=== PATIENT | female | born 1940 | race Caucasian/White ===

== ENCOUNTER 2019-10-12 12:24 | Inpatient (IN) | payer MEDICARE, OTHER ==
[2019-10-12] MEDS ORDERED: Iopamidol-370 76% 500 ML 1 ML ONE (12:31)
[2019-10-12 12:44] LABS: #Basophils 0.1 thou/uL (0.0-0.2); #Eosinphils 0.1 thou/uL (0.0-0.7); #Lymphocytes 3.1 thou/uL (1.20-3.40); #Neutrophils 9.4 thou/uL (1.40-6.50); %Basophils 0.9 % (0.0-1.0); %Eosinophils 0.7 % (0.0-10.0); %Lymphocytes 22.7 % (21.0-51.0); %Neutrophils 68.7 % (42.0-75.0); Mean Corpuscular HGB CONC 32.9 g/dL (32.0-36.0); Mean Corpuscular Hemoglobin 26.9 pg (27.0-31.0); Mean Corpuscular Volume 81.8 fL (78.0-98.0); Mean Platelet Volume 7.3 fL (7.4-10.4); Platelet Count 367 thou/uL (130-400); RBC Distribution Width 13.3 % (11.5-14.5); White Blood Cell (WBC) Count 13.7 thou/uL (4.8-10.8)
--- NOTE | 2019-10-12 12:50 | CT ---
CT BRAIN NONCONTRAST: DATE: 10/12/2019 HISTORY: 79-year-old female status post acute head trauma from fall. Dr. Bailey verbally gave this trauma report by telephone to Dr. Renae of the ER at 12:47 PM 10/12/2019 FINDINGS: There is no evidence of acute intra-axial or extra-axial hemorrhage. There is no midline shift or any other mass effect. There is no extra-axial fluid collection. There is no evidence of obstructive hydrocephalus. Calvarium is intact. There is diffuse brain parenchymal volume loss. There are low att enuation areas in the white matter. These are nonspecific, but in a patient of this age, they are probably chronic ischemic white matter changes due to microvascular atherosclerosis. There is a super ficial soft tissue hematoma in the right parietal scalp. IMPRESSION: 1) No acute intracranial findings. 2) involutional changes and severe chronic ischemic white matter changes. 3) acute, traumatic right parietal scalp hematoma.
[2019-10-12] MEDS ORDERED: Fentanyl 100 MCG/2 ML VIAL ONE (12:58)
[2019-10-12] MEDS ORDERED: Lidocaine 1% w/Epinephrine 1:100K 20 ML VIAL ONE (12:59)
[2019-10-12] MEDS ORDERED: Ondansetron PF 4 MG/2 ML Vial ONE (12:59)
[2019-10-12] MEDS ORDERED: Adacel (T-DAP) 0.5 ML SYRINGE ONE (13:04)
[2019-10-12 13:07] LABS: ALT (SGPT) 9 U/L (8-55); AST (SGOT) 15 U/L (5-34); Albumin 3.9 g/dL (3.4-4.8); Alkaline Phosphatase 129 U/L (40-110); Anion Gap 16 mmol/L (10-20); BUN (Urea Nitrogen) 7 mg/dL (9.8-20.1); Bilirubin, Total 0.5 mg/dL (0.2-1.2); CK (CPK) 55 U/L (29-168); Calc. Creatinine Clearance 0 mL/min (70-130); Calcium 9.5 mg/dL (7.8-10.44); Carbon Dioxide 21 mmol/L (23-31); Chloride 101 mmol/L (98-107); Estimated GFR-MDRD 73; Glucose 118 mg/dL (83-110); Lipase 6 U/L (8-78); Protein, Total 6.9 g/dL (6.0-8.3); Sodium 134 mmol/L (136-145)
--- NOTE | 2019-10-12 13:14 | CT ---
CT THORAX WITH CONTRAST CT ABDOMEN WITH CONTRAST CT PELVIS WITH CONTRAST CT THORACIC SPINE WITH CONTRAST CT LUMBAR SPINE WITH CONTRAST: (Trauma protocol) DATE: 10/12/2019 HISTORY: Trauma to the chest, abdomen, and pelvis 79-year-old female status post fall. Dr. Bailey discussed the findings and recommendations by telephone with Dr. Renae at 1:11 PM 10/12/2019 TECHNIQUE: IV administration of iodinated contrast media. No oral contrast media. Single phase scans of thorax, abdomen, and pelvis. Sagittal reconstructions of thoracic and lumbar spine. FINDINGS: Lungs: No contusion. 7 mm groundglass nodule left lower lobe. 5 mm noncalcified nodule anterior segment right upper lobe. Pleura: No pneumothorax or hemothorax. Thoracic aorta: No dissection or rupture. Mediastinum: No hematoma. Hilum: 2.5 x 1 cm soft tissue density mass at left hilum Abdomen and pelvis: Liver: No laceration Spleen: No laceration Pancreas: No surrounding fluid or fat stranding. Kidneys: No hydronephrosis or laceration. 2.7 x 2.1 x 3.3 cm right adrenal nodule. Bladder: No gross evidence of rupture. Abdominal aorta: 3.3 cm fusiform infrarenal abdominal aortic aneurysm. No dissection or rupture. Small bowel: No dilation. Colon: No adjacent fat stranding. Free air: None. Free fluid: None. Skeleton: Ribs: No grossly displaced acute fracture. Sternum: No grossly displaced acute fracture. Thoracic spine: No acute compression fracture. Lumbar spine: No acute compression fracture. High-grade degenerative disc disease at 2 levels. Pelvis: No grossly displaced acute fracture. No dislocation. IMPRESSION: 1.) No evidence of acute traumatic injury within the thorax, abdomen, or pelvis. 2.) 3.3 cm fusiform infrarenal abdominal aortic aneurysm. 3.) Retroperitoneal para-aortic abnormally enlarged 4) lumbar spondylosis. 5) 2.7 cm right adrenal nodule. Recommend dedicated CT of abdomen with and without contrast, adrenal protocol. 6) left hilar mass or lymphadenopathy. Recommend PET scan. 7) bilateral pulmonary nodules, one on each side. Recommend six-month follow-up chest CT.
[2019-10-12 13:26] LABS: CKMB 3.4 ng/mL (0-6.6)
--- NOTE | 2019-10-12 13:50 | CT ---
CT CERVICAL SPINE WITH CORONAL AND SAGITTAL REFORMATIONS AND NO IV CONTRAST: 10/12/19 HISTORY: Level II trauma. Fall, neck pain. FINDINGS: Multilevel degenerative changes are seen. No fracture, subluxation or facet malalignment is identifie d. Discussed over the telephone with ER physician, Dr. Rob Renae at 12:58 p.m. POS: SAMUEL
[2019-10-12] MEDS ORDERED: Bisacodyl 5 MG TAB PO PRN (17:32)
[2019-10-12] MEDS ORDERED: Acetaminophen 650 MG Suppository PR PRN (17:32)
--- NOTE | 2019-10-12 19:07 | HP ---
PRIMARY CARE PROVIDER: Unknown. CHIEF COMPLAINT: Unwitnessed fall. HISTORY OF PRESENT ILLNESS: Ms. Zabala is a pleasant 79-year-old lady, who was seen at [facility] on October 12, 2019. Patient is unable to provide any significant history. Collateral history was obtained from the patient's daughter by the bedside. Patient lives at home and has a caregiver, who comes for a few hours. She was last seen to be fine around 7 p.m. yesterday. Today when the caregiver came to her house, she was found on the floor, covered in blood. She also had reported urinated on herself. She was transferred to this hospital as a trauma alert. She had workup done for trauma. She was subsequently referred to hospitalist service for syncope workup. REVIEW OF SYSTEMS: Could not be completed secondary to patient's nonverbal status. PAST MEDICAL HISTORY: Hypertension and coronary artery disease. PAST SURGICAL HISTORY: Coronary artery bypass graft twice, hysterectomy, and lumbar spine surgery. SOCIAL HISTORY: Patient smokes one pack of cigarettes a day. There is no history of alcohol use or recreational drug use. FAMILY HISTORY: Significant for coronary artery disease. CODE STATUS: I discussed her code status with her daughter. Patient is DNAR. ALLERGIES: PENICILLIN. CURRENT MEDICATIONS: Need to be clarified. PHYSICAL EXAMINATION: GENERAL: On examination, Ms. Zabala is sleepy, but arousable, not in acute distress. VITAL SIGNS: Blood pressure is 150/94, pulse 113, respiratory rate 16, and oxygen saturation 93% on room air. She is afebrile. EYES: No scleral icterus, no conjunctival pallor. ENT: Moist mucosal membranes. No oropharyngeal erythema or exudates. NECK: Supple, nontender, trachea is midline. RESPIRATORY: Accessory muscles of breathing are not active. Chest wall movements are symmetric bilaterally. Lungs are clear to auscultation, without wheeze, rhonchi, or crepitations. CARDIOVASCULAR: S1 and S2 are heard, tachycardic and regular. Peripheral pulses palpable. ABDOMEN: Soft, nontender, bowel sounds are heard. NEUROLOGIC: Full neurologic examination was not possible secondary to patient's noncooperation. No facial droop. Deep tendon reflexes 2+, plantars downgoing bilaterally. MUSCULOSKELETAL: Could not assess power. SKIN: Patient has a scalp laceration. She also had blood covering her skin in other parts of her body. LYMPHATIC: No cervical lymphadenopathy. PSYCHIATRIC: Could not assess mood, affect, or orientation to person, place, or time. LABORATORY DATA: Ms. Zabala's labs and investigations were reviewed. I reviewed her electrocardiogram, which shows normal sinus rhythm, no ST changes to suggest an acute coronary syndrome. I also reviewed her noncontrast CT scan of the brain, which does not show any acute intracranial findings. She has a right parietal scalp hematoma. CT scan of the cervical spine showed multilevel degenerative changes but no fracture, subluxation, or facet malalignment. CT scan of the chest, abdomen, pelvis, and CT did not show any evidence of acute traumatic injury within the thorax, abdomen, or pelvis. She has a 3.3 cm fusiform infrarenal abdominal aortic aneurysm, abnormally enlarged retroperitoneal para-aortic lymph nodes, lumbar spondylosis, 2.7 right adrenal nodule, and left hilar mass or lymphadenopathy. She also had bilateral pulmonary nodules. She has decreased sodium of 134, normal potassium, normal creatinine, indeterminate troponin-I of 0.050, elevated alkaline phosphatase of 129, otherwise unremarkable LFTs, leukocytosis with 13,700 white cells, of which 9400 are neutrophils, normal hemoglobin and normal platelet count. Urine studies are pending. ASSESSMENT AND PLAN: Ms. Zabala is a pleasant 79-year-old lady, who was seen at [facility] on October 12, 2019. Her problem list includes: 1. Acute metabolic encephalopathy: Ms. Campos is presenting with acute metabolic encephalopathy, etiology unclear. She will be admitted to the hospital for further management. We will provide gentle hydration. We will await urine studies to evaluate for infection. 2. Fall: Patient had an unwitnessed fall. She reportedly also urinated on herself. We will check EEG to rule out seizure. We will get PT consult. 3. Coronary artery disease: Patient has an indeterminate troponin. We will monitor on telemetry and recheck her troponin. We will also check 2D echocardiogram to look for regional wall motion abnormalities. 4. Hyponatremia: Mild, likely asymptomatic. 5. Adrenal nodule: Further workup as outpatient. 6. Left hilar mass: We will initiate workup once the goals of care are clear. 7. Level of risk: High. 8. Level of complexity: High. Job ID: [id number]
[2019-10-12 20:37] LABS: Troponin I 0.029 ng/mL (< 0.028)
[2019-10-12] MEDS: Nicotine 21 MG PATCH TD SCH (22:12)
[2019-10-12] MEDS: Sodium Chloride 0.9% 1,000 ML IV SCH (22:12)
[2019-10-12 22:31] VITALS: BMI 25.1
[2019-10-12 23:44] LABS: Troponin I 0.018 ng/mL (< 0.028)
[2019-10-13 08:06] LABS: #Basophils 0.1 thou/uL (0.0-0.2); #Eosinphils 0.2 thou/uL (0.0-0.7); #Lymphocytes 3.1 thou/uL (1.20-3.40); #Monocytes 0.8 thou/uL (0.11-0.59); #Neutrophils 5.8 thou/uL (1.40-6.50); %Basophils 0.9 % (0.0-1.0); %Eosinophils 1.7 % (0.0-10.0); %Lymphocytes 31.2 % (21.0-51.0); %Monocytes 8.1 % (0.0-10.0); %Neutrophils 58.2 % (42.0-75.0); Hemoglobin 11.4 g/dL (12.0-16.0); Mean Corpuscular HGB CONC 32.2 g/dL (32.0-36.0); Mean Corpuscular Volume 83.9 fL (78.0-98.0); Mean Platelet Volume 7.6 fL (7.4-10.4); Platelet Count 323 thou/uL (130-400); RBC Distribution Width 13.4 % (11.5-14.5); Red Blood Cell (RBC) Count 4.22 mill/uL (4.20-5.40)
[2019-10-13 08:27] LABS: Anion Gap 13 mmol/L (10-20); BUN (Urea Nitrogen) 9 mg/dL (9.8-20.1); Calc. Creatinine Clearance 73 mL/min (70-130); Calcium 8.7 mg/dL (7.8-10.44); Carbon Dioxide 20 mmol/L (23-31); Chloride 106 mmol/L (98-107); Estimated GFR-MDRD 84; Glucose 86 mg/dL (83-110); Sodium 135 mmol/L (136-145)
[2019-10-13] MEDS ORDERED: Prevnar 13-Val Conj/PF 0.5 ML SYRINGE IM ONE (09:00)
[2019-10-13 11:59] LABS: Bacteria/HPF None Seen HPF (None Seen); Bilirubin Negative (Negative); Blood, Urine Negative (Negative); Clarity Clear (Clear); Glucose, Urine (Dipstick) Normal (Negative); Ketone, Urine Negative (Negative); Leukocyte Negative Leu/uL (Negative); Nitrite Negative (Negative); Protein, Urine (Dipstick) Negative (Neg-Trace); RBC/HPF 0-3 HPF (0-3); Specific Gravity, Urine 1.042 (1.002-1.036); Squamous Epithelial 0-3 HPF (0-3); Urobilinogen Normal mg/dL (Less than 2); WBC/HPF 0-3 HPF (0-3)
[2019-10-13 12:00] LABS: Urine Culture Reflex No No
[2019-10-13] MEDS ORDERED: Iopamidol-370 76% 500 ML 1 ML ONE (13:23)
[2019-10-13] MEDS: Sodium Chloride 0.9% 1,000 ML IV SCH (15:22)
--- NOTE | 2019-10-13 16:27 | PDOC.HOSPP ---
- Subjective Encounter Date: 10/13/19 Encounter Time: 08:00 Subjective: no overnight events. this morning, feeling well and has no complaints. - Objective Vital Signs & Weight: Vital Signs (12 hours) Temp Pulse Resp BP BP Pulse Ox 10/13/19 15:25 98.5 F 96 14 178/75 H 94 L 10/13/19 11:12 98.5 F 73 14 115/55 L 96 10/13/19 07:52 98.6 F 81 14 136/63 94 L Weight Weight 146 lb 8 oz I&O: 10/12/19 10/13/19 10/14/19 06:59 06:59 06:59 Intake Total 580 Balance 580 Result Diagrams: 10/13/19 07:46 10/13/19 07:46 Hospitalist ROS - Review of Systems Constitutional: denies: fever, chills, sweats Respiratory: denies: cough, dry, shortness of breath Cardiovascular: denies: chest pain, palpitations, orthopnea Gastrointestinal: denies: nausea, vomiting, abdominal pain, diarrhea Genitourinary: denies: hematuria - Medication Medications: Active Medications Generic Name Dose Route Start Last Admin Trade Name Freq PRN Reason Stop Dose Admin Sodium Chloride 1,000 mls @ 50 mls/hr 10/12/19 18:30 10/13/19 15:22 Normal Saline 0.9% IV 1,000 mls .Q20H ISSAC Administration Nicotine 21 mg 10/12/19 21:00 10/12/19 22:12 Nicoderm Patch TD Not Given Q24HR ISSAC - Exam General Appearance: NAD, awake alert ENT - other findings: small 1-2cm diameter posterior scalp hematoma, stapled laceration Neck: no JVD Heart: RRR, no murmur, no gallops, no rubs Respiratory: CTAB, no wheezes, no rales, no ronchi Gastrointestinal: soft, non-tender, non-distended, normal bowel sounds Extremities: no edema Psychiatric: oriented to person, oriented to place. negative: oriented to time Hosp A/P - Plan #syncope/presyncope -infectious and cardiac workup negative so far (telemetry showing occasional PVCs) -orthostats -continue IVF #adrenal incidentaloma -CT abd w/ w/o contrast, adrental protocol -metanephrine, subclinical kyler, hyperaldosteronism workup #lung incidentaloma -2 subcentimeter pulmonary nodules; considering not single less likely malignant etiology -history of tobacco abuse -follow up imaging as outpatient in 3-6 months #HTN
[2019-10-13] MEDS ORDERED: hydrALAZINE 20 MG/ML VIAL SLOW IVP PRN (16:50)
[2019-10-13] MEDS ORDERED: Labetalol HCl 100 MG/20 ML VIAL SLOW IVP PRN (16:50)
--- NOTE | 2019-10-13 19:08 | CT ---
CT ABDOMEN AND PELVIS WITH AND WITHOUT CONTRAST: 10/13/19 Postcontrast images were obtained in a portal venous phase and delayed venous phase following an adre nal protocol. INDICATIONS: Follow-up CT scan from 10/12/19 which described a right adrenal mass. FINDINGS: The right adrenal mass is again noted. This right adrenal mass measures approximately 3 cm AP dimensi on in axial plane. Review of these densities indicate a benign adenoma. The precontrast images recorded at approximately 1.0 Hounsfield units. The postcontrast images show washout that would indicate a benign lesion with portal venous density recorded at 46 Hounsfield units and delayed density recorded at 15 Hounsfield u nits. The liver, spleen, pancreas and kidneys unremarkable. There is an abdominal aortic aneurysm which was described on yesterday's CT. No other interval change noted. IMPRESSION: 1. Adrenal mass protocol again demonstrates a right adrenal mass. The adrenal protocol shows den sities consistent with a benign adenoma. 2. Abdominal aortic aneurysm again noted. No significant change from yesterday's CT. POS: MARIE
[2019-10-13] MEDS: Nicotine 21 MG PATCH TD SCH (21:32)
[2019-10-13] MEDS ORDERED: Dexamethasone 1 MG TAB PO SCH (23:00)
[2019-10-14] MEDS: Acetaminophen 325 MG TAB PO PRN ×2 (05:00→23:23)
[2019-10-14] MEDS: Sodium Chloride 0.9% 1,000 ML IV SCH (11:41)
--- NOTE | 2019-10-14 16:10 | PDOC.HOSPP ---
- Subjective Encounter Date: 10/14/19 Encounter Time: 09:00 Subjective: no overnigh events. this morning more alert and oriented x 3. feels well and has no complaints. - Objective Vital Signs & Weight: Vital Signs (12 hours) Temp Pulse Resp BP BP Pulse Ox 10/14/19 14:58 97.3 F L 78 16 158/71 H 96 10/14/19 11:52 96.9 F L 66 14 142/64 H 95 10/14/19 07:17 97.3 F L 71 12 154/76 H 97 Weight Weight 146 lb 8 oz I&O: 10/13/19 10/14/19 10/15/19 06:59 06:59 06:59 Intake Total 580 840 Output Total 200 Balance 580 640 Result Diagrams: 10/13/19 07:46 10/13/19 07:46 Hospitalist ROS - Review of Systems Constitutional: denies: fever, chills, sweats, weakness, malaise, other Respiratory: denies: cough, dry, shortness of breath, hemoptysis, SOB with excertion, pleuritic pain, sputum, wheezing, other Cardiovascular: denies: chest pain, palpitations, orthopnea, paroxysmal noc. dyspnea, edema, light headedness, other Gastrointestinal: denies: nausea, vomiting, abdominal pain, diarrhea, constipation, melena, hematochezia, other - Medication Medications: Active Medications Generic Name Dose Route Start Last Admin Trade Name Freq PRN Reason Stop Dose Admin Acetaminophen 650 mg 10/12/19 17:32 10/14/19 05:00 Tylenol PO 650 mg Q4H PRN Administration Headache/Fever/Mild Pain (1-3) Sodium Chloride 1,000 mls @ 50 mls/hr 10/12/19 18:30 10/14/19 11:41 Normal Saline 0.9% IV 1,000 mls .Q20H ISSAC Administration Nicotine 21 mg 10/12/19 21:00 10/13/19 21:32 Nicoderm Patch TD Not Given Q24HR ISSAC - Exam General Appearance: NAD, awake alert Neck: no JVD Heart: RRR, no murmur, no gallops, no rubs Respiratory: CTAB, no wheezes, no rales, no ronchi Gastrointestinal: soft, non-tender, non-distended, normal bowel sounds Extremities: no edema Psychiatric: normal affect, normal behavior, A&O x 3 Hosp A/P - Plan #syncope/presyncope -infectious and cardiac workup negative so far (telemetry showing occasional PVCs) -orthostats negative -likely a result of mechanical fall due to deconditioning -pending placement #adrenal incidentaloma -CT c/w benign adenoma; subclnical kyler and DHEAS negative; pending metanephrine #lung incidentaloma -2 subcentimeter pulmonary nodules; considering not single less likely malignant etiology -history of tobacco abuse -follow up imaging as outpatient in 3-6 months #HTN better controlled; continue current regimen Dispo: attempted to call daughter Mirtha; left voice message Pending placement; CM consulted; intermediate project manager care preferable since not certain patient will be able to care for self
[2019-10-14] MEDS: Nicotine 21 MG PATCH TD SCH (22:07)
[2019-10-15] MEDS: Sodium Chloride 0.9% 1,000 ML IV SCH (11:08)
[2019-10-16] MEDS: Nicotine 21 MG PATCH TD SCH ×2 (01:17→20:56)
[2019-10-16] MEDS: Sodium Chloride 0.9% 1,000 ML IV SCH (08:40)
[2019-10-16] MEDS: Acetaminophen 325 MG TAB PO PRN (08:40)
--- NOTE | 2019-10-16 17:04 | EEG ---
DATE OF SERVICE: 10/15/2019 ATTENDING PHYSICIAN: Corinne Roberts MD. This EEG was performed using 24-channel [employer] video digital EEG machine with 24-disk electrodes. This was an extended 2-hour 5-minute of inpatient video EEG recording. Digital analysis of the EEG was done for spike and seizure detection, which revealed no abnormalities. BACKGROUND: The posterior background rhythm was not observed. HYPERVENTILATION: Not performed. PHOTIC STIMULATION: No significant response seen with photic stimulation. SLEEP: No stage change was observed. EEG DIAGNOSES: 1. Intermittent irregular theta activity, at times sharply contoured, seen throughout the recording. 2. Absence of posterior background rhythm. CLINICAL INTERPRETATION: This EEG is consistent with moderate generalized nonspecific cerebral dysfunction. Job ID: [id number]
--- NOTE | 2019-10-16 17:34 | PDOC.HOSPP ---
- Subjective Encounter Date: 10/15/19 Encounter Time: 09:00 Subjective: no overnight evnets. this morning feeling better overall and has no complaints. Pending placement - Objective Vital Signs & Weight: Vital Signs (12 hours) Temp Pulse Pulse Pulse Resp BP BP 10/16/19 15:04 96.3 F L 71 18 10/16/19 11:07 97.8 F 77 18 10/16/19 09:00 73 71 143/60 H 141/63 H 10/16/19 06:52 98.2 F 77 18 BP BP Pulse Ox Pulse Ox Pulse Ox 10/16/19 15:04 158/72 H 96 10/16/19 11:07 150/65 H 98 10/16/19 09:00 97 97 10/16/19 06:52 143/94 H 97 Weight Weight 146 lb 8 oz I&O: 10/15/19 10/16/19 10/17/19 06:59 06:59 06:59 Intake Total 1920 Output Total 250 Balance 1670 Result Diagrams: 10/13/19 07:46 10/13/19 07:46 Hospitalist ROS - Review of Systems Constitutional: denies: fever, chills, sweats Respiratory: denies: cough, dry, shortness of breath Cardiovascular: denies: chest pain, palpitations Gastrointestinal: denies: nausea, vomiting, abdominal pain Genitourinary: denies: dysuria, frequency, hematuria - Medication Medications: Active Medications Generic Name Dose Route Start Last Admin Trade Name Freq PRN Reason Stop Dose Admin Acetaminophen 650 mg 10/12/19 17:32 10/16/19 08:40 Tylenol PO 650 mg Q4H PRN Administration Headache/Fever/Mild Pain (1-3) Sodium Chloride 1,000 mls @ 50 mls/hr 10/12/19 18:30 10/16/19 08:40 Normal Saline 0.9% IV 1,000 mls .Q20H ISSAC Administration Nicotine 21 mg 10/12/19 21:00 10/16/19 01:17 Nicoderm Patch TD Not Given Q24HR ISSAC - Exam General Appearance: NAD, awake alert Heart: RRR, no murmur, no gallops, no rubs Respiratory: CTAB, no wheezes, no rales, no ronchi Gastrointestinal: soft, non-tender, non-distended, normal bowel sounds Psychiatric: A&O x 3 Hosp A/P - Plan #syncope/presyncope -infectious and cardiac workup negative so far (telemetry showing occasional PVCs) -orthostats negative -likely a result of mechanical fall due to deconditioning -pending placement #adrenal incidentaloma -CT c/w benign adenoma; subclnical kyler and DHEAS negative; renin, metanephrine not performed #lung incidentaloma -2 subcentimeter pulmonary nodules; considering not single less likely malignant etiology -history of tobacco abuse -follow up imaging as outpatient in 3-6 months #HTN better controlled; continue current regimen Dispo: attempted to call daughter Mirtha (10/14); left voice message Pending placement; CM consulted; detention care preferable since not certain patient will be able to care for self ELOS: 1 night
--- NOTE | 2019-10-16 20:57 | PDOC.HOSPP ---
- Subjective Encounter Date: 10/16/19 Encounter Time: 09:00 Subjective: no overnight events. this morning, feeling well and has no complaiints. pending placement - Objective Vital Signs & Weight: Vital Signs (12 hours) Temp Pulse Pulse Pulse Resp BP BP 10/16/19 19:38 98.1 F 72 16 10/16/19 15:04 96.3 F L 71 18 10/16/19 11:07 97.8 F 77 18 10/16/19 09:00 73 71 143/60 H 141/63 H BP BP Pulse Ox Pulse Ox Pulse Ox 10/16/19 19:38 163/71 H 97 10/16/19 15:04 158/72 H 96 10/16/19 11:07 150/65 H 98 10/16/19 09:00 97 97 Weight Weight 146 lb 8 oz I&O: 10/15/19 10/16/19 10/17/19 06:59 06:59 06:59 Intake Total 1920 Output Total 250 Balance 1670 Result Diagrams: 10/13/19 07:46 10/13/19 07:46 Hospitalist ROS - Review of Systems Constitutional: denies: fever, chills, sweats Respiratory: denies: cough, dry, shortness of breath Cardiovascular: denies: chest pain, palpitations Gastrointestinal: denies: nausea, vomiting, abdominal pain Genitourinary: denies: dysuria, frequency, hematuria - Medication Medications: Active Medications Generic Name Dose Route Start Last Admin Trade Name Freq PRN Reason Stop Dose Admin Acetaminophen 650 mg 10/12/19 17:32 10/16/19 08:40 Tylenol PO 650 mg Q4H PRN Administration Headache/Fever/Mild Pain (1-3) Sodium Chloride 1,000 mls @ 50 mls/hr 10/12/19 18:30 10/16/19 08:40 Normal Saline 0.9% IV 1,000 mls .Q20H ISSAC Administration Nicotine 21 mg 10/12/19 21:00 10/16/19 01:17 Nicoderm Patch TD Not Given Q24HR ISSAC - Exam General Appearance: NAD, awake alert Neck: no JVD Heart: RRR, no murmur, no gallops, no rubs Respiratory: CTAB, no wheezes, no rales, no ronchi Gastrointestinal: soft, non-tender, non-distended, normal bowel sounds Extremities: no edema Psychiatric: normal affect, normal behavior, A&O x 3 Hosp A/P - Plan #syncope/presyncope -infectious and cardiac workup negative so far (telemetry showing occasional PVCs) -orthostats negative -likely a result of mechanical fall due to deconditioning -pending placement #adrenal incidentaloma -CT c/w benign adenoma; subclnical kyler and DHEAS negative; renin, metanephrine not performed #lung incidentaloma -2 subcentimeter pulmonary nodules; considering not single less likely malignant etiology -history of tobacco abuse -follow up imaging as outpatient in 3-6 months #HTN better controlled; continue current regimen Dispo: attempted to call daughter Mirtha (10/14); left voice message Pending placement; CM consulted; [facility] care preferable since not certain patient will be able to care for self ELOS: 1 night
[2019-10-17] MEDS: Sodium Chloride 0.9% 1,000 ML IV SCH (03:30)
[2019-10-17] MEDS ORDERED: Lisinopril 10 MG TAB PO SCH (10:15)
--- NOTE | 2019-10-17 19:05 | PDOC.HOSPP ---
- Subjective Encounter Date: 10/17/19 Encounter Time: 10:00 Subjective: no overnight events this morning, feeling well. refuses telemetry pads. has no complaints. - Objective Vital Signs & Weight: Vital Signs (12 hours) Temp Pulse Resp BP BP Pulse Ox 10/17/19 15:00 98.3 F 75 16 142/69 H 96 10/17/19 11:05 97.8 F 69 16 171/74 H 95 10/17/19 09:40 168/74 H 10/17/19 08:05 98.1 F 73 16 170/72 H 95 Weight Weight 146 lb 8 oz Result Diagrams: 10/13/19 07:46 10/13/19 07:46 Hospitalist ROS - Review of Systems Constitutional: denies: fever, chills, sweats Respiratory: denies: cough, dry, shortness of breath Cardiovascular: denies: chest pain, palpitations, orthopnea Gastrointestinal: denies: nausea, vomiting, abdominal pain - Medication Medications: Active Medications Generic Name Dose Route Start Last Admin Trade Name Freq PRN Reason Stop Dose Admin Acetaminophen 650 mg 10/12/19 17:32 10/16/19 08:40 Tylenol PO 650 mg Q4H PRN Administration Headache/Fever/Mild Pain (1-3) Nicotine 21 mg 10/12/19 21:00 10/16/19 20:56 Nicoderm Patch TD 21 mg Q24HR ISSAC Administration Pantoprazole Sodium 40 mg 10/17/19 09:00 10/17/19 09:41 Protonix PO 40 mg DAILY ISSAC Administration - Exam General Appearance: NAD, awake alert Neck: no JVD Heart: RRR, no murmur, no gallops, no rubs Respiratory: CTAB, no wheezes, no rales, no ronchi Gastrointestinal: soft, non-tender, non-distended, normal bowel sounds Extremities: no edema Psychiatric: normal affect, normal behavior, A&O x 3 Hosp A/P - Plan #syncope/presyncope -infectious and cardiac workup negative so far (telemetry showing occasional PVCs) -orthostats negative -likely a result of mechanical fall due to deconditioning -pending placement #adrenal incidentaloma -CT c/w benign adenoma; subclnical kyler and DHEAS negative; renin, metanephrine not performed #lung incidentaloma -2 subcentimeter pulmonary nodules; considering not single less likely malignant etiology -history of tobacco abuse -follow up imaging as outpatient in 3-6 months #HTN increased lisinopril to 20mg PO qd Dispo: transfer to medicine floor. Pending placement; CM consulted; detention care preferable since not certain patient will be able to care for self ELOS: 1 night
[2019-10-17] MEDS: Nicotine 21 MG PATCH TD SCH (20:59)
[2019-10-17] MEDS: Acetaminophen 325 MG TAB PO PRN (21:01)
[2019-10-18 06:47] LABS: Anion Gap 12 mmol/L (10-20); BUN (Urea Nitrogen) 7 mg/dL (9.8-20.1); Calc. Creatinine Clearance 76 mL/min (70-130); Carbon Dioxide 23 mmol/L (23-31); Chloride 104 mmol/L (98-107); Estimated GFR-MDRD 88; Glucose 92 mg/dL (83-110); Magnesium 1.8 mg/dL (1.6-2.6); Potassium 3.3 mmol/L (3.5-5.1); Sodium 136 mmol/L (136-145)
[2019-10-18 08:11] VITALS: TEMP 97.7
[2019-10-18] MEDS ORDERED: Lisinopril 20 MG TAB PO SCH (09:00)
[2019-10-18] MEDS ORDERED: Lisinopril 10 MG TAB PO SCH (09:00)
[2019-10-18] MEDS ORDERED: Electrolyte Replacement Protoc 1 EACH EACH FS SCH (10:00)
[2019-10-18] MEDS ORDERED: Magnesium 2 GM/50 ML 2 GM in Premix Bag 1 BAG IVPB SCH (10:15)
[2019-10-18] MEDS ORDERED: Potassium Chloride 20 MEQ TAB PO SCH (10:15)
[2019-10-18 12:57] VITALS: BP 125/59
--- NOTE | 2019-10-19 00:34 | DIS ---
DATE OF ADMISSION: 10/12/2019 DATE OF DISCHARGE: 10/18/2019 HOSPITAL COURSE: Ms. Zabala is a 79-year-old female with a medical history of coronary artery disease status post CABG, and hypertension. She had an unwitnessed fall resulting in a scalp laceration and acute bleed. She was diagnosed with a mechanical fall due to deconditioning and acute symptomatic anemia resulting in drowsiness and tachycardia on presentation. She was also diagnosed with a benign adrenal adenoma and subcentimeter lung nodules that require further imaging followup. During her inpatient stay, complete infectious and cardiac workups, presyncope and syncope were negative. Echocardiography showed severe mitral regurgitation, but she is a poor candidate for regurgitation, repair, or replacement. On the day of discharge, she was feeling well and had no complaints. Her scalp laceration was healing appropriately. PHYSICAL EXAMINATION: VITAL SIGNS: Blood pressure 125/59, pulse 71, respiratory rate 16, oxygen saturation 98% on room air, and temperature 97.7. GENERAL: Lying comfortably in the chair, awake and alert. HEENT: Normocephalic. Has a scalp laceration on the right posterior part of the scalp that is stapled (tirso to be removed in two weeks). HEART: Regular rate and rhythm. No murmurs, gallops, or rubs. RESPIRATORY: Clear to auscultation bilaterally. No wheezing, rales, or rhonchi. GI: Soft, nontender, and nondistended. Normal bowel sounds. EXTREMITIES: No edema. PSYCHIATRIC: Proper mood and affect. Alert and oriented x3. MEDICATION LIST: New medications; 1. Nicotine patch 25 mg transdermal every 24 hours for six weeks. 2. Atorvastatin 80 mg p.o. at bedtime. 3. Coreg 3.125 mg p.o. b.i.d. 4. Lisinopril 20 mg p.o. daily. Continued medications, omeprazole 20 mg p.o. daily. On discharge, the patient was requested to follow up with her primary care physician in a week with followup on her wound as well as new medication follow up. She was discharged to [facility]. Job ID: [id number]
--- NOTE | 2019-10-19 07:20 | PQF ---
Dear : Curry Stark Date: 10/19/19 Please exercise your independent, professional judgment in responding to the clarification form. Clinical indicators are provided on the bottom of this form for your review Can you please further clarify if acute metabolic encephalopathy is ruled in or ruled out? Acute metabolic encephalopathy [ ] Ruled in diagnosis [ ] Continue to treat [ ] Resolved [x ] Ruled out diagnosis [ ] Improving [ ] Cannot rule out diagnosis [ ] Other diagnosis [ ] Unable to determine Physician Signature: Date/Time: For continuity of documentation, please document condition throughout progress notes and discharge summary. Thank You. To be completed by CDI/Coding staff for physician review: Present Clinical Indicators - Signs / Symptoms / Labs Results and Location in Medical Record [ x ] acute metabolic encephalopathy, unclear etiology H and P pg.3 [ x ] syncope/presyncope Hospitalist PN [ x ] Unwitnessed fall DS pg.1 [ x ] sleepy, but abusable, not in acute distress H and P pg.2 [ x ] moderated generalized non specific cerebral dysfunction EEG Report 10/14 [ x ] Patient is confused ED Notes 10/11 [ x ] syncope with altered mental status ED Notes 10/11 Present Risk Factors Results and Location in Medical Record [ x ] 79 years old H and P pg.1 [ x ] CAD H and P pg.1 [ x ] smokes one pack per day H and P pg.1 [ x ] HTN H and P pg.1 [ x ] Dementia ED Notes 10/11 [ x ] Scalp laceration ED Notes 10/11 [ x ] Hyponatremia HP 10/11 Present Treatments Results and Location in Medical Record [ x ] CT Brain CT Brain note 10/11 [ x ] EEG/EMG EEG/EMG note 10/14 [ x ] IV Fluids MAR [ x ] TTE Echocardiogram CDS/Patient Admitting Clerk Signature: Dewayne Stuart Phone #: [phone] Date: 10/19/19 This is a permanent part of the Medical Record [facility]
== END 2019-10-18 13:39 | disposition swing bed (61) | DRG 812 ==
LOC: ERS 12:24 → 2NO 14:25 → T4-A 10-17 19:59
PROVIDERS: ADMIT Internal Medicine; ATTEND Internal Medicine
PROC: 0HQ0XZZ Repair Scalp Skin, External Approach (ICD-10-PCS; principal; 2019-10-12)
DX: D64.9 Anemia, unspecified (principal); E87.1 Hypo-osmolality and hyponatremia; D35.01 Benign neoplasm of right adrenal gland; Z66 Do not resuscitate; I10 Essential (primary) hypertension; S00.03XA Contusion of scalp, initial encounter; S01.01XA Laceration without foreign body of scalp, initial encounter; W19.XXXA Unspecified fall, initial encounter; I25.10 Atherosclerotic heart disease of native coronary artery without angina pectoris; E86.0 Dehydration; R53.81 Other malaise; F17.210 Nicotine dependence, cigarettes, uncomplicated; R91.1 Solitary pulmonary nodule; Z95.1 Presence of aortocoronary bypass graft; Z91.14 Patient's other noncompliance with medication regimen; Z88.0 Allergy status to penicillin; Z90.49 Acquired absence of other specified parts of digestive tract
CPT/HCPCS: 12001; 36415; 70450; 71260; 72125; 74177; 74178; 80048; 80053; 81001; 82088; 82533; 82550; 82553; 82627; 83690; 83735; 84244; 84484; 85025; 90471; 90715; 93005; 93306; 95712; 95819; 95957; 96361; 96374; 96375; G0390; J2405; J3010; J3475; J8540; Q9967